=== PATIENT | female | born 1985 | race Caucasian/White ===

== ENCOUNTER 2018-07-19 16:50 | Emergency (ER) | payer OTHER ==
[~2018-07-19] VITALS: Ht 167.6 cm; Wt 64.2 kg
[2018-07-19 16:58] VITALS: Ht 167.6 cm; Wt 64.2 kg
--- NOTE | 2018-07-19 20:21 | ERD ---
ER Documentation Chief Complaint Chief Complaint Complains of palpitations since this am HPI 33-year-old female with known history of SVT status post ablation. The patient presents to the emergency room to receive medical clearance prior to receiving oral elective medication. She was sent to the emergency room to receive clearance. She has been having increasing episodes of SVT and palpitations recently. Currently she is asymptomatic. She is recently found to be . She is a . Patient otherwise has no abdominal pain or vaginal bleeding or spotting. ROS All systems reviewed and are negative except as per history of present illness. FmHx Family History: No diabetes Physical Exam Vitals Vital Signs Date Temp Pulse Resp B/P (MAP) Pulse Ox O2 O2 Flow FiO2 Time Delivery Rate 07/19/18 97.7 122 20 116/79 100 16:58 (91) Physical Exam General: Well developed, well nourished, no acute distress Head: Normocephalic, atraumatic. Eyes: EOM intact ENT: Moist mucous membranes Neck: Full ROM Respiratory: No respiratory distress Cardiovascular: Well perfused distally, no murmurs rubs or gallops, slight tachycardia Abdominal: Nondistended : Deferred MSK: No edema, no unilateral swelling, 5/5 strength Neurologic: Alert and oriented, moving all extremities, normal speech, steady gait Skin: No rash Psych: Normal mood Procedures/MDM EKG, MONITORS, & DIAGNOSTIC IMAGING: EKG: I reviewed and interpreted a 12-lead EKG. Rhythm: Sinus tachycardia ST Changes: No contiguous ST segment elevations T waves: No contiguous T wave inversions Impression: [No evidence of acute cardiac ischemia] MEDICAL DECISION MAKING: The patient presents for medical clearance prior to receiving oral elective medication in the setting of her SVT. Currently the patient is not in SVT. She is slight tachycardia which is reported to be her baseline. She does not wish to take beta-ivis medication is failed ablation therapy. She does not have a primary care physician or risk management director at this time. I explained to the patient that all I can tell her at this time is that she is not in SVT and does not have an emergent medical condition. I am not at liberty to give the patient medical clearance prior to this medication this is something that needs to be done by her primary care physician or risk management director in conjunction with her [employer]. I explained that this is the best that I can do with her medical screening examination the patient is agreeable. She has no evidence of comp occasions related to her current . CONSULTATION: [None] DISPOSITION PLAN: The patient does not have an identifiable emergent medical condition that warrants inpatient hospitalization at this time. The patient is deemed safe for discharge with outpatient follow-up. We discussed follow up with the patient's primary care doctor within 24 to 48 h ours as needed. We also discussed return to the emergency room for worsening symptoms or worsening condition. Outpatient referral: Primary care and risk management director recommended Departure Diagnosis: Primary Impression: Palpitations Additional Impression: History of paroxysmal supraventricular tachycardia Condition: Good Patient Instructions: Palpitations Referrals: [facility] YOU HAVE RECEIVED A MEDICAL SCREENING EXAM AND THE RESULTS INDICATE THAT YOU DO NOT HAVE A CONDITION THAT REQUIRES URGENT TREATMENT IN THE EMERGENCY DEPARTMENT. FURTHER EVALUATION AND TREATMENT OF YOUR CONDITION CAN WAIT UNTIL YOU ARE SEEN IN YOUR DOCTORS OFFICE WITHIN THE NEXT 1-2 DAYS. IT IS YOUR RESPONSIBILITY TO MAKE AN APPOINTMENT FOR FOLOW-UP CARE. IF YOU HAVE A PRIMARY DOCTOR --you should call your primary doctor and schedule an appointment IF YOU DO NOT HAVE A PRIMARY DOCTOR YOU CAN CALL OUR PHYSICIAN REFERRAL HOTLINE AT IF YOU CAN NOT AFFORD TO SEE A PHYSICIAN YOU CAN CHOSE FROM THE FOLLOWING [facility] [address] [facility]. [facility] [address] [facility]. [facility] [address] [facility] [facility] [address] [facility] [facility] [address] [facility]. [facility]. [address] [facility]. [facility] YOU HAVE RECEIVED A MEDICAL SCREENING EXAM AND THE RESULTS INDICATE THAT YOU DO NOT HAVE A CONDITION THAT REQUIRES URGENT TREATMENT IN THE EMERGENCY DEPARTMENT. FURTHER EVALUATION AND TREATMENT OF YOUR CONDITION CAN WAIT UNTIL YOU ARE SEEN IN YOUR DOCTORS OFFICE WITHIN THE NEXT 1-2 DAYS. IT IS YOUR RESPONSIBILITY TO MAKE AN APPOINTMENT FOR FOLOW-UP CARE. IF YOU HAVE A PRIMARY DOCTOR --you should call your primary doctor and schedule and appointment IF YOU DO NOT HAVE A PRIMARY DOCTOR YOU CAN CALL OUR PHYSICIAN REFERRAL HOTLINE AT . IF YOU CAN NOT AFFORD TO SEE A PHYSICIAN YOU CAN CHOSE FROM THE FOLLOWING [facility] INSTITUTIONS[facility] [address] [place] [address] [facility] [address] [place] [address] [facility] + [facility] [place] [address] [place] [address] Additional Instructions: The patient was evaluated in the emergency room and is not currently in supraventricular tachycardia. She was advised to follow-up with a primary care physician and risk management director. I cannot speak to her cardiac status and safety re garding medical abortificant medications in the setting of her SVT. That is not my expertise. She needs to follow-up with her primary care physician and risk management director. The patient does not have an acute emergent medical condition at this time. SUSSY NICOLE MD Jul 19, 2018 20:20
[2018-07-19 20:37] VITALS: BP 111/83; PULSE 105; RESP 16
== END 2018-07-19 20:38 | disposition home or self-care (01) ==
LOC: E/R 16:50
DX: R00.2 Palpitations (principal); Z86.79 Personal history of other diseases of the circulatory system
CPT/HCPCS: 93005; Z7502